=== PATIENT | female | born 1980 | race Two or more races ===

== ENCOUNTER 2016-10-25 15:42 | Observation (INO) | payer MEDICAID ==
[2016-10-25] MEDS ORDERED: LACTATED RINGERS 1,000 ML ONE (17:12)
[2016-10-25 17:27] LABS: SPECIFIC GRAVITY 1.015 (1.001-1.030); URINE APPEARANCE HAZY; URINE BILIRUBIN NEGATIVE (NEGATIVE); URINE BLOOD 4+ (NEGATIVE); URINE COLOR RED; URINE GLUCOSE (UA) NEGATIVE (NEGATIVE); URINE LEUKOCYTE ESTERASE TRACE (NEGATIVE); URINE NITRITE NEGATIVE (NEGATIVE); URINE PROTEIN 2+ (NEGATIVE); URINE UROBILINOGEN NORMAL (0-1 mg/dl)
[2016-10-25 17:27] LABS: ABSOLUTE NEUTROPHIL COUNT 6.5 K/mm3 (1.8-7.7); BASO % 0.3 % (0.2-1.0); EOS # 0.1 (0.0-0.5); EOS % 0.9 % (0.9-2.9); HEMATOCRIT 21.8 % (37.0-47.0); IMM NEUT # 0.1 K/mm3 (0-0.2); IMM NEUT% 1.5 % (0-1); LYMPH # 1.8 (1.0-4.8); LYMPH % 19.8 % (15-45); MEAN CELL VOLUME 82.6 fl (81.0-99.0); MEAN CORPUSCULAR HEMOGLOBIN 24.6 pg (27.0-31.0); MEAN CORPUSCULAR HGB CONC 29.8 g/dl (33.0-37.0); MEAN PLATELET VOLUME 10.3 fl (7.4-10.4); MONO # 0.5 (0.0-0.8); NEUT % 71.5 % (43-75); PLATELET COUNT 289 K/mm3 (130-400); RED CELL DISTRIBUTION WIDTH 14.9 % (11.5-14.5)
[2016-10-25 17:30] LABS: HEMOGLOBIN 6.5 gm/l (12.0-16.0)
[2016-10-25 17:30] LABS: HCG,QUALITATIVE URINE NEGATIVE
[2016-10-25 17:42] LABS: URINE BACTERIA FEW; URINE RBC TNTC /hpf; URINE WBC 0-3 /hpf
[2016-10-25 17:50] LABS: ALB/GLOB RATIO 1.6 (>1.0); ALBUMIN 3.9 gm/dL (3.5-5.7); CALCIUM 8.7 mg/dL (8.6-10.3)
--- NOTE | 2016-10-25 19:22 | US ---
Clinical indication: Bleeding for 8 days. Low hemoglobin. Technique: Transabdominal pelvic sonography was performed.To better visualize the endometrium and adnexa transvaginal sonography was performed. Comparison: None prior CT scan abdomen and pelvis dated 03/14/2015 was reviewed. Findings: Uterus: The uterus is anteverted. The echotexture is heterogeneous. The uterus measures 10.4 x 6.0 x 6.0 centimeters. There is a large anterior fundal leiomyoma that measures 7.4 x 7.1 x 6.6 cm. This does cause some depression of the endometrium. Endometrial thickness: 18 millimeters. It is heterogeneous and thickened. No increased vascularity is identified currently. Adnexa: Right ovary: 4.1 x 2.5 x 2.5 centimeters. There is Doppler flow. There is a right ovarian cyst measuring 2.1 x 1.8 x 0.8 cm. Left ovary: 3.1 x 1.8 x 2.1 centimeters. There is Doppler flow. Cul-de-sac fluid: None IMPRESSION: 1. Large anterior uterine fundal leiomyoma closely approximating the endometrium. This appears to have increased in size since the prior CT scan 2014. Other entities that may need to be considered is endometrial polyp or hyperplasia. Neoplastic process cannot be excluded with confidence. Endometrial biopsy may be warranted in this instance. 2. Thickened endometrium to 18 mm. This also does raise concern for hyperplasia as well. 3. 2.1 cm right ovarian cyst. Findings were discussed with Dr. Wang at 7:15 PM 10/25/2016
[2016-10-25] MEDS ORDERED: BISACODYL 5 MG TABLET.EC PO PRN (22:10)
[2016-10-25] MEDS ORDERED: SODIUM CHLORIDE 0.9% 100 ML IV PRN (22:10)
[2016-10-25] MEDS ORDERED: BISACODYL 10 MG SUP PR PRN (22:10)
[2016-10-25] MEDS ORDERED: ACETAMINOPHEN 325 MG TABLET PO PRN (22:10)
[2016-10-25] MEDS ORDERED: BLISTEX LIPSTICK 1 EACH TP PRN (22:10)
[2016-10-25] MEDS ORDERED: CALCIUM CARBONATE 500 MG TAB.CHEW PO PRN (22:10)
[2016-10-25] MEDS ORDERED: MAGNESIUM HYDROXIDE 30 ML UDCUP PO PRN (22:10)
[2016-10-25] MEDS ORDERED: DIPHENHYDRAMINE HCL 50 MG CAPSULE PO PRN (22:10)
[2016-10-25] MEDS ORDERED: DOCUSATE SODIUM 100 MG CAPSULE PO SCH (22:10)
[2016-10-25] MEDS ORDERED: MENTHOL/CETYLPYRD 1 EACH LOZENGE PO PRN (22:10)
[2016-10-25] MEDS ORDERED: FLU VACC 2016-17 (36MO-64Y)/PF 60 MCG/0.5 ML SYRINGE IM V ONE (22:43)
[2016-10-25 22:47] VITALS: BMI 23.7
[2016-10-26] MEDS ORDERED: PUMP TUBING ONE (00:29)
[2016-10-26] MEDS: SODIUM CHLORIDE 0.9% 1,000 ML IV SCH ×2 (00:37→13:59)
[2016-10-26] MEDS: DOCUSATE SODIUM 100 MG CAPSULE PO SCH ×3 (00:39→21:00)
[2016-10-26] MEDS ORDERED: MEDROXYPROGESTERONE ACET 2.5 MG TABLET ONE (00:45)
[2016-10-26] MEDS: MEDROXYPROGESTERONE ACET 5 MG TABLET PO SCH ×2 (00:47→09:41)
[2016-10-26 05:51] LABS: ABSOLUTE NEUTROPHIL COUNT 4.5 K/mm3 (1.8-7.7); BASO % 0.4 % (0.2-1.0); EOS # 0.1 (0.0-0.5); EOS % 1.5 % (0.9-2.9); HEMATOCRIT 25.6 % (37.0-47.0); HEMOGLOBIN 8.5 gm/l (12.0-16.0); IMM NEUT # 0.1 K/mm3 (0-0.2); LYMPH # 1.7 (1.0-4.8); MEAN CELL VOLUME 87.1 fl (81.0-99.0); MEAN CORPUSCULAR HEMOGLOBIN 28.9 pg (27.0-31.0); MEAN CORPUSCULAR HGB CONC 33.2 g/dl (33.0-37.0); MEAN PLATELET VOLUME 11.3 fl (7.4-10.4); MONO # 0.5 (0.0-0.8); MONO % 7.1 % (4-12); PLATELET COUNT 255 K/mm3 (130-400); RED CELL DISTRIBUTION WIDTH 15.4 % (11.5-14.5)
--- NOTE | 2016-10-26 06:31 | HP ---
Tiffanie Shah : 1980 ADMISSION DATE: 10/25/2016 REASON FOR ADMISSION: Menometrorrhagia, fibroid uterus, severe anemia. HISTORY OF PRESENT ILLNESS: Tiffanie is a 36-year-old 4, para 3-0-1-3 who comes in today with her Tawanda. She was first seen by emergency room physician who discovered that she has a hemoglobin of 6.5 and a hematocrit of 21.8%. She does give a history of bleeding irregularly for at least this past year. The plan is to transfuse this patient and to keep her at least overnight for observation. The patient describes that her bleeding started about 8 days ago. It has been quite heavy with passage of some large clots. It has not slowed at all. Yesterday she an episode of syncope while she was at work at [employer]. She also has been feeling dizziness, weak, and crampy for this past week. The history goes back even over a year ago when she apparently was evaluated at the emergency department in [place]. She was told at that time that she has a fibroid uterus and she was transfused some blood then also. She was then discharged on a control pill and apparently did pretty well for many months without any further heavy bleeding. The patient, however, was then referred to a labelling machine operator who established that this patient actually wanted to get again, so the patient was sent to [facility] to discuss fertility in the face of this fibroid uterus and bleeding. The patient has been off the control pill since about July. She has been having somewhat irregular bleeding. She has had some very heavy periods and then she has had this episode of bleeding which has been quite severe. PAST OBSTETRICAL HISTORY: The patient has had four pregnancies. She has had one miscarriage and three children. They are now ages 18, 17, and 12 years old. It seems that she has had at least one section, but I was not able to get a full history from her because of a language barrier. PAST MEDICAL HISTORY: Patient denies any major medical problems. Generally she is fairly health. She denies hypertension or diabetes. She does not drink a significant amount of alcohol. She does not smoke. She does not use any recreational drugs. She has had a cold for the last week and continues to have some coughing, but feels that she has been improving. SOCIAL HISTORY: The patient is in a stable mutually monogamous relationship. Her partner Tawanda is here with her and they are hoping to have at least one child. The patient works outside, but has also worked [employer]. REVIEW OF SYSTEMS: The patient has had some dizziness. She denies any significant chest pain or shortness of breath, though she has been coughing. It has been a nonproductive cough. She has had some lower abdominal pain more on the left side than on the right side and some bloating, but denies any nausea, vomiting, or diarrhea. The patient denies any confusion. She has certainly felt tired and somewhat weak, but has not had any numbness or tingling. PHYSICAL EXAMINATION: VITAL SIGNS: Blood pressure was 115/65, pulse was 110, respirations 18 with a dry cough periodically, temperature 98.7. LUNGS: Clear to auscultation bilaterally. No costovertebral tenderness. HEART: Regular rate and rhythm, though somewhat tachycardic. ABDOMEN: Soft, normal bowel sounds. No guarding, no rebound tenderness. There is some tenderness on palpation in the suprapubic area and on the left side. PELVIC: The external genitalia are normal. Patient, however, is continuing to bleed some fairly pinkish blood and soaked this last pad in about 30 minutes. On bimanual exam the uterus is high, somewhat bulky, it is mobile, it was tender a little bit on the left side. It was hard to assess the nature of the fibroids, there is just some liquid blood in the vagina, no clots. DIAGNOSTICS: An ultrasound that was done on 10/25/2016 today shows an anteverted uterus measuring 10.4 x 6.0 x 6.0 with a large anterior fundal fibroid measuring 7.4 cm, it is distorting the endometrial lining some. The endometrial thickness is 18 mm. The radiologist noted that this patient had a CT scan here in 2014 and the fibroid has increased in size since then. LABORATORY WORK: CBC shows a white blood cell count of 9.1, hemoglobin 6.5, hematocrit 21.8, platelet count is 289. The patient also had a urinalysis which is normal except 4+ blood. She has had chemistry testing which showed a glucose of 113. Normal liver function test. Her blood type is O positive. The initial antibody screen was negative, but it seems that she did test positive for some cold agglutinins, because of this her transfusion was warmed prior to administration. Patient was also kept in the emergency room for the transfusion. She will then be transferred to med/surg for managements of her bleeding. IMPRESSION: Large fibroid uterus, menometrorrhagia. Patient desiring future fertility. JOB: [id number]
[2016-10-26 08:41] LABS: ALB/GLOB RATIO 1.5 (>1.0); ALBUMIN 3.1 gm/dL (3.5-5.7); CALCIUM 8.2 mg/dL (8.6-10.3)
[2016-10-26] MEDS ORDERED: ONDANSETRON 4 MG/2ML 2 ML VIAL IV PRN (09:33)
[2016-10-26] MEDS ORDERED: PROMETHAZINE HCL 25 MG TABLET PO PRN (09:33)
[2016-10-26] MEDS ORDERED: ESTROGENS CONJUGATED IV SCH (09:45)
--- NOTE | 2016-10-26 15:57 | PDOC36 ---
Provider Note Subject: OBGYN note Note: Report from RN - pt still feeling dizziness. Vaginal bleeding improved after IV premarin 1 dose. Post transfusion hgb=8.5. Plan: Transfuse 1 more unit PRBC continue IV premarin q6hr chk cbc in AM
[2016-10-26] MEDS: ESTROGENS CONJUGATED IV SCH ×2 (16:50→21:55)
[2016-10-26] MEDS ORDERED: BLOOD Y PLUMSET W/CASSETTE ONE (17:33)
[2016-10-27 06:00] LABS: HEMATOCRIT 29.3 % (37.0-47.0); HEMOGLOBIN 9.3 gm/l (12.0-16.0); MEAN CELL VOLUME 84.2 fl (81.0-99.0); MEAN CORPUSCULAR HEMOGLOBIN 26.7 pg (27.0-31.0); MEAN CORPUSCULAR HGB CONC 31.7 g/dl (33.0-37.0); RED CELL DISTRIBUTION WIDTH 15.1 % (11.5-14.5)
[2016-10-27] MEDS: SODIUM CHLORIDE 0.9% 1,000 ML IV SCH ×2 (06:06→15:18)
[2016-10-27] MEDS: DOCUSATE SODIUM 100 MG CAPSULE PO SCH (08:37)
--- NOTE | 2016-10-27 10:35 | PDOC43 ---
- Subjective Subjective: Reports Flatus, Reports Pain Tolerable, Reports Tolerating PO Regular, Denies Chest Pain, Denies Nausea, Denies Vomiting, Denies Fever - Objective Vital Signs Temperature 98.3 F 10/27/16 07:39 Pulse Rate 84 10/27/16 08:05 Respiratory Rate 14 10/27/16 07:39 Blood Pressure 113/69 10/27/16 08:05 O2 Saturation by Pulse Oximetry 95 10/27/16 07:39 Oxygen Delivery Method Room Air Oxygen Flow Rate 0 Laboratory 10/27/16 05:30 10/26/16 05:15 10/27/16 05:30 RBC 3.48 L MCH 26.7 L MCHC 31.7 L RDW 15.1 H Active Medication Orders Category Date Time Status Acetaminophen [Tylenol] Med 10/25/16 22:10 Active 650 mg PO Q6H PRN Bisacodyl [Dulcolax] Med 10/25/16 22:10 Active 10 mg NC DAILY PRN Bisacodyl [Dulcolax] Med 10/25/16 22:10 Active 5 mg PO DAILY PRN Calcium Carbonate [Tums] Med 10/25/16 22:10 Active 500 mg PO Q4H PRN Diphenhydramine HCl [Benadryl] Med 10/25/16 22:10 Active 25 - 50 mg PO Q6H PRN Docusate Sodium [Colace] Med 10/26/16 01:00 Active 100 mg PO BID Lip [place] [Blistex] Med 10/25/16 22:10 Active 1 each TP PRN PRN Magnesium Hydroxide [Milk of Magnesia] Med 10/25/16 22:10 Active 30 ml PO DAILY PRN Menthol/Cetylpyridinium [Cepacol] Med 10/25/16 22:10 Active 1 each PO PRN PRN Ondansetron 4 mg/2ml Vial [Zofran] Med 10/26/16 09:33 Active 4 mg IV Q3H PRN Promethazine HCl [Phenergan] Med 10/26/16 09:33 Active 25 mg PO Q4H PRN Sodium Chloride 0.9% 1,000 ml Med 10/25/16 22:10 Active IV 75 mls/hr Sodium Chloride 0.9% 100 ml Med 10/25/16 22:10 Active IV PRN Sodium Chloride 0.9% 500 ml Med 10/25/16 22:10 Active IV 25 mls/hr Sodium Chloride 0.9% Flush [Normal Saline 10ml Flush] Med 10/25/16 22:10 Active 10 - 50 ml IV PRN PRN Sodium Chloride 0.9% Flush [Normal Saline 10ml Flush] Med 10/26/16 09:00 Active 10 ml IV Q8HR Intake and Output 10/25/16 10/26/16 10/27/16 23:59 23:59 23:59 Intake Total 3185 1390 Output Total 1120 1000 Balance 2065 390 General: Afebrile, No Acute Distress Abdomen: Soft, Non-Distended, No Tenderness Genitourinary: Normal Female Genitalia, Other (no vaginal bleeding) Psych/Mental Status: Normal Affect, Normal Mood - Assessment/ Plan: (1) Leiomyoma uteri Status: Acute (2) Menometrorrhagia Status: Acute (3) Anemia Qualifiers: Iron deficiency anemia type: chronic blood loss Status: Acute - Disposition: Disposition: (transfuse one additional unit of packed cells, then may be discharged if hb greater than 10)
[2016-10-27] MEDS ORDERED: SODIUM CHLORIDE 0.9% 500 ML ONE (10:43)
[2016-10-27] MEDS ORDERED: BLOOD Y PLUMSET W/CASSETTE ONE (10:43)
[2016-10-27] MEDS: SODIUM CHLORIDE 0.9% 500 ML IV PRN ×2 (10:50→12:33)
[2016-10-27] MEDS ORDERED: SODIUM CHLORIDE 0.9% 500 ML IV PRN (11:11)
[2016-10-27 13:58] VITALS: BP 110/64
[2016-10-27 15:27] LABS: HEMATOCRIT 35.2 % (37.0-47.0); HEMOGLOBIN 11.4 gm/l (12.0-16.0)
--- NOTE | 2016-10-27 15:50 | PDOC5 ---
Hospital Course: ADMIT DATE: 10/25/16 DISCHARGE DATE: 10/27/16 ADMISSION DIAGNOSES: anemia, leiomyoma uteri, menometrorrhagia PROCEDURES: intravenous premarin and blood transfusions HISTORY OF PRESENT ILLNESS: 36 year old presenting with anemia, heavy and prolonged menses and uterine fibroids HOSPITAL COURSE: The patient's bleeding was controlled with iv premarin and anemia treated with blood transfusions. By day of discharge the patient is ambulating, eating, voiding, and passing flatus without difficulty. Pain is controlled. after her last transfusion, her discharge hemoglobin was 11.4 - Objective General: Afebrile, No Acute Distress Abdomen: Soft Genitourinary: Normal Female Genitalia, Other (no bleeding with exam on 10/27/16 during morning rounds) Extremities: No Tenderness Psych/Mental Status: Normal Affect, Normal Mood - Discharge Diagnosis (1) Leiomyoma uteri Qualifiers: Uterine leiomyoma location: unspecified location Qualifier Code: (D25.9 ) Leiomyoma of uterus, unspecified Status: Acute (2) Menometrorrhagia Status: Resolved (3) Anemia Qualifiers: Iron deficiency anemia type: chronic blood loss Status: Acute - Discharge Plan Condition: Stable Disposition: Home Additional Instructions: office visit with dr oneill in one week or sooner should bleeding recur or any other symptoms or pain. Follow-Up: Emilee Oneill MD [Staff Physician] - As scheduled
== END 2016-10-27 17:20 | disposition home or self-care (01) ==
LOC: ED 15:42 → MS 19:42
PROVIDERS: ADMIT Obstetrics & Gynecology; ATTEND Obstetrics & Gynecology
PROC: 3E0234Z Introduction of Serum, Toxoid and Vaccine into Muscle, Percutaneous Approach (ICD-10-PCS; principal; 2016-10-25)
PROC: 30233N1 Transfusion of Nonautologous Red Blood Cells into Peripheral Vein, Percutaneous Approach (ICD-10-PCS; principal; 2016-10-25)
DX: D25.9 Leiomyoma of uterus, unspecified (principal); D50.9 Iron deficiency anemia, unspecified; Z23 Encounter for immunization
CPT/HCPCS: 90686; 83690; 81025; 85027; 85025 ×2; 80053 ×2; 85014; 85018; 81001; 36415 ×2; 86920 ×2; 86922 ×2; 86921 ×2; 86901; 86850 ×3; 76856; 76830; 99285 ×2; 51702; 36430 ×2; 96360; 96361; 90471; A9270 ×7; J1410 ×3; J2405; J7120; J7040 ×2; J7030 ×3; P9016 ×4

== ENCOUNTER 2016-11-02 14:18 | Emergency (ER) | payer MEDICAID ==
[2016-11-02 15:00] LABS: ABSOLUTE NEUTROPHIL COUNT 5.2 K/mm3 (1.8-7.7); BASO # 0.1 K/mm3 (0.0-0.2); BASO % 0.7 % (0.2-1.0); EOS # 0.1 (0.0-0.5); EOS % 0.7 % (0.9-2.9); HEMATOCRIT 27.2 % (37.0-47.0); HEMOGLOBIN 8.7 gm/l (12.0-16.0); IMM NEUT% 0.4 % (0-1); LYMPH # 1.6 (1.0-4.8); LYMPH % 20.8 % (15-45); MEAN CELL VOLUME 82.9 fl (81.0-99.0); MEAN CORPUSCULAR HEMOGLOBIN 26.5 pg (27.0-31.0); MEAN PLATELET VOLUME 10.5 fl (7.4-10.4); MONO # 0.7 (0.0-0.8); MONO % 8.6 % (4-12); NEUT % 68.8 % (43-75); PLATELET COUNT 312 K/mm3 (130-400); RED CELL DISTRIBUTION WIDTH 14.1 % (11.5-14.5)
[2016-11-02] MEDS ORDERED: SODIUM CHLORIDE 0.9% 500 ML ONE (15:01)
[2016-11-02] MEDS ORDERED: MEDROXYPROGESTERONE ACET 5 MG TABLET PO ONE (15:15)
== END 2016-11-02 16:31 | disposition home or self-care (01) ==
LOC: ED 14:18
DX: N93.8 Other specified abnormal uterine and vaginal bleeding (principal); D64.9 Anemia, unspecified